=== PATIENT | female | born 1990 | race Caucasian/White ===

== ENCOUNTER 2020-08-28 20:12 | Emergency (ER) | payer OTHER ==
[2020-08-28 20:58] VITALS: BP 134/75
[2020-08-28] MEDS ORDERED: HYDROCODONE/ACETAMINOPHEN 5-325 MG (6 TAB/ER DISP) PO PRN (21:19)
--- NOTE | 2020-08-28 21:21 | ER Document Report ---
HPI - HPI Time Seen by Provider: 08/28/20 21:11 Context: Patient is a 29-year-old female presents emergency department with a chief complaint of right upper jaw pain. A week ago, she had a tooth extraction in [facility]. She states that she has been taking ibuprofen and Tylenol. She does have a history of GERD, and states that she only takes ibuprofen as needed. She went to an emergency dentist here in the area, but states that they cannot treat her for her dry socket. They did not give her any medicine for pain. Denies any fever, body aches, or chills. - ROS Systems Reviewed and Negative: Yes All other systems reviewed and negative - CONSTITUTIONAL Constitutional: DENIES: Fever, Chills - EENT EENT: DENIES: Sore Throat Notes: Right upper jaw pain. - NEURO Neurology: DENIES: Headache - RESPIRATORY Respiratory: DENIES: Trouble Breathing, Coughing - GASTROINTESTINAL Gastrointestinal: DENIES: Abdominal Pain, Nausea, Patient vomiting - MUSCULOSKELETAL Musculoskeletal: DENIES: Extremity pain - DERM Skin Color: Normal Skin Problems: None Past Medical History - General Information source: Patient - Social History Smoking Status: Never Smoker Family History: Reviewed & Not Pertinent Vertical Provider Document - CONSTITUTIONAL Agree With Documented VS: Yes Exam Limitations: No Limitations General Appearance: No Apparent Distress - HEENT HEENT: Atraumatic, Normocephalic Mouth Diagram: 1 - Dry socket - NECK Neck: Normal Inspection - RESPIRATORY Respiratory: No Respiratory Distress - CARDIOVASCULAR Pulses: Normal: Radial - MUSCULOSKELETAL/EXTREMETIES Musculoskeletal/Extremeties: FROM - NEURO Level of Consciousness: Awake, Alert, Appropriate Motor/Sensory: No Motor Deficit, No Sensory Deficit - DERM Integumentary: Warm, Dry Course - Re-evaluation Re-evalutation: 08/28/20 21:18 Patient does have tenderness noted to her dry socket area. We will give her nurse, Dosepak to help with pain. I have a low suspicion for any infection at this time. She will follow-up with her doctors on Monday. She is in agreement with this plan. Follow-up precautions were given. Verbal discharge instructions were given to the patient. They verbalized understanding. They are stable for discharge. - Vital Signs Vital signs: Temp Pulse Resp BP Pulse Ox 98.8 F 69 14 134/75 H 100 08/28/20 20:55 08/28/20 20:55 08/28/20 20:55 08/28/20 20:55 08/28/20 20:55 Discharge - Discharge Clinical Impression: Dry tooth socket Condition: Stable Disposition: HOME, SELF-CARE Additional Instructions: You are seen today in the emergency department for jaw pain from your dry socket. Continue take ibuprofen, but take your Pepcid 40 mg twice a day to help prevent any ulcers while on ibuprofen. You are also being sent home with 6 tablets of Wall[place]. Please use these sparingly. You can take 1 tablet in the morning and 1 tablet in the evening. Do not operate heavy machinery or drive while taking this medication. It may make you drowsy. Follow-up with your dentist when you go back to [place]. Forms: Return to Work
[2020-08-28] MEDS ORDERED: HYDROCODONE/ACETAMINOPHEN 5-325 MG TABLET PO ONE (21:22)
== END 2020-08-28 21:50 | disposition home or self-care (01) ==
LOC: ER 20:12
DX: M27.3 Alveolitis of jaws (principal); R68.84 Jaw pain
CPT/HCPCS: 99283